=== PATIENT | male | born 1960 | race Caucasian/White ===

== ENCOUNTER 2020-04-28 17:08 | Emergency (ER) | payer OTHER ==
[2020-04-28] MEDS ORDERED: Acetaminophen/oxyCODONE 325-5 MG Tab PO ONE (17:09)
--- NOTE | 2020-04-28 18:33 | EDM.PDOC ---
ED HPI GENERAL MEDICAL PROBLEM - General Chief Complaint: General Stated Complaint: TOOTH PAIN Time Seen by Provider: 04/28/20 18:30 Source of Information: Reports: Patient History Limitations: Reports: No Limitations - History of Present Illness INITIAL COMMENTS - FREE TEXT/NARRATIVE: 60-year-old male who reports has had problems with a right lower molar that has a crown for some time. He has had pain off and on in this area but noticed some tingling in the tooth beginning about 5-6 days ago and 2 days ago began have pain in the tooth. The pain has increased and he also has noted some swelling around the base of the tooth and swelling along his right lower jaw. The pain is anywhere from an 8 to a 10/10 and he reports that he did not sleep much last night. He had 1 leftover Percocet that he took and was able to sleep some today but otherwise he has had no relief from the ibuprofen and Tylenol that he has been taking. He did contact a dentist and was unable to see the dentist until next week but the dentist told him that he should go into drug use of antibiotics and he is here try to get some antibiotics/therapy for beginning treatment of this tooth problem. There are no other associated signs or symptoms. There are no other modifying factors. Onset: Other (5-6 days ago) Duration: Getting Worse Location: Reports: Other (Right lower dental pain) Quality: Reports: Sharp, Throbbing Severity: Moderate (to severe) Improves with: Reports: None Worsens with: Reports: Other (Chewing. 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 Social & Family History - Tobacco Use Tobacco Use Status *Q: Current Every Day Tobacco User - Alcohol Use Alcohol Use History: Yes Alcohol Use Frequency: Rarely - Living Situation & Occupation Occupation: Retired ([employer] ED ROS GENERAL - Review of Systems Review Of Systems: See Below Constitutional: Reports: No Symptoms HEENT: Reports: Dental Pain Respiratory: Reports: No Symptoms Cardiovascular: Reports: No Symptoms Endocrine: Reports: No Symptoms GI/Abdominal: Reports: No Symptoms : Reports: No Symptoms Musculoskeletal: Reports: No Symptoms Skin: Reports: No Symptoms Neurological: Reports: Headache Hematologic/Lymphatic: Reports: No Symptoms Immunologic: Reports: No Symptoms ED EXAM, GENERAL - Physical Exam Exam: See Below Exam Limited By: No Limitations General Appearance: Alert, WD/WN, Moderate Distress, Other (Nontoxic appearing) Eye Exam: Bilateral Eye: EOMI, Normal Inspection Ears: Normal External Exam, Hearing Grossly Normal Ear Exam: Bilateral Ear: Auricle Normal Nose: Normal Inspection, Normal Mucosa, Nasal Drainage Throat/Mouth: Normal Voice, No Airway Compromise, Other (Right lower dental pain. Erythema and swelling around right lower molar) Head: Atraumatic, Facial Swelling (Along right lower jaw.) Neck: Normal Inspection, Supple, Non-Tender, Full Range of Motion Respiratory/Chest: No Respiratory Distress, Lungs Clear, Normal Breath Sounds, No Accessory Muscle Use, Chest Non-Tender Cardiovascular: Normal Peripheral Pulses, Regular Rate, Rhythm, No Murmur Peripheral Pulses: 2+: Radial (L), Radial (R) GI/Abdominal: Normal Bowel Sounds, Soft, Non-Tender, No Mass Back Exam: Normal Inspection, Full Range of Motion Extremities: Normal Inspection, Normal Range of Motion, Non-Tender, Normal Capillary Refill, No Pedal Edema Neurological: Alert, Oriented, CN II-XII Intact, Normal Cognition, No Motor/Sensory Deficits Skin Exam: Warm, Dry, Intact, Normal Color, No Rash Course - Vital Signs Last Recorded V/S: Last Vital Signs Temp 36.6 C 04/28/20 18:00 Pulse 67 04/28/20 18:00 Resp 17 04/28/20 18:00 BP 135/77 04/28/20 18:00 Pulse Ox 98 04/28/20 18:00 - Orders/Labs/Meds Meds: Medications Discontinued Medications Generic Name Dose Route Start Last Admin Trade Name Freq PRN Reason Stop Dose Admin Ceftriaxone Sodium 1 gm 04/28/20 18:48 04/28/20 19:11 Rocephin IM 04/28/20 18:49 1 gm ONETIME ONE Administration Clindamycin HCl 450 mg 04/28/20 18:52 04/28/20 19:02 Cleocin PO 04/28/20 18:53 450 mg ONETIME ONE Administration - Re-Assessments/Exams Free Text/Narrative Re-Assessment/Exam: 04/28/20 18:40: The patient does have a definite dental abscess. I will give him an injection of Rocephin now and will place him on clindamycin 450 mg 3 times a day. I will also give him a small prescription of Percocet (12) that he can use for severe pain. I did review the patient to the [place] [employer] website and there was no evidence of abuse and the patient has an acute painful problem that would benefit from short term narcotic pain therapy. The patient is to follow- up with his dentist this coming week. Departure - Departure Time of Disposition: 19:50 Disposition: Home, Self-Care 01 Condition: Good Clinical Impression: Pain, dental, Dental abscess - Discharge Information *PRESCRIPTION DRUG MONITORING PROGRAM REVIEWED*: Yes ([facility] website reviewed with multiple states around [place] reviewed as well and the patient has had no prescriptions for narcotics in the past year and there is no evidence of any abuse.) *COPY OF PRESCRIPTION DRUG MONITORING REPORT IN PATIENT BENEDICT: No Prescriptions: Clindamycin HCl 450 mg PO TID 10 Days #90 capsule Acetaminophen/oxyCODONE [Percocet 325-5 MG] 1 - 2 tab PO Q6H PRN #8 tab PRN Reason: Moderate to severe pain Instructions: Dental Abscess, [id number] Referrals: Rome Arcos MD [Primary Care Provider] - Forms: ED Department Discharge Additional Instructions: You have a dental abscess associated with the crowned tooth on the right lower jaw. I have placed you on antibiotics to treat this (clindamycin). I have also given you an antibiotic injection in the emergency department (Rocephin). You should continue to take naproxen every 8-12 hours as needed for pain. Medication prescribed as needed for severe pain (Percocet 5/325). See a dentist next week as soon as you can arrange. Back to the emergency department for trouble swallowing, trouble breathing, high fever, swelling under your tongue or any other concerning sign or symptom. Sepsis Event Note (ED) - Focused Exam Vital Signs: Vital Signs Temp Pulse Resp BP Pulse Ox 04/28/20 18:00 36.6 C 67 17 135/77 98
[2020-04-28] MEDS ORDERED: cefTRIAXone 1 GM Vial IM ONE (18:48)
[2020-04-28] MEDS ORDERED: Clindamycin HCl 150 MG Cap PO ONE (18:52)
== END 2020-04-28 19:45 | disposition home or self-care (01) ==
LOC: FB.ED 17:08
DX: K04.7 Periapical abscess without sinus (principal); I10 Essential (primary) hypertension; Z72.0 Tobacco use
CPT/HCPCS: 96372; 99282; A9270; J0696; 99283